=== PATIENT | female | born 2000 | race Caucasian/White ===

== ENCOUNTER → 2024-12-03 | Outpatient (CLI) | payer BC ==
--- NOTE | 2024-12-03 10:06 | MR ---
EXAMINATION TYPE: MR brain wo con DATE OF EXAM: 12/03/2024 8:58 AM COMPARISON: None. CLINICAL INDICATION: Female, 24 years old with history of G43.009 MIGRAINE W/O AURA, NOT INTRACTABLE, W/O ST; PHH, Migraines. TECHNIQUE: Multi planar, multi sequence imaging was performed through the brain including: T1, T2, In version recovery, Diffusion weighted imaging, and gradient echo imaging. No gadolinium was given. FINDINGS: The cota-white junctions, ventricular system, basal cisterns appear unremarkable. Midline structures show no abnormality. Diffusion-weighted imaging shows no evidence of restricted diffusion. The suscep tibility weighted images do not reveal any evidence for micro-hemorrhage. The bone marrow signal is within normal limits. Paranasal sinuses and mastoid air cells: No significant paranasal sinus disease. Visualized orbits: Orbital contents are intact. IMPRESSION: No evidence of intracranial mass or acute/subacute infarct. [facility] Vasquez, , 12/03/2024 10:04 AM
== END | disposition home or self-care (01) ==
LOC: RADMRIMAIN 08:26
PROVIDERS: ATTEND Family Medicine
DX: G43.009 Migraine without aura, not intractable, without status migrainosus (principal)
CPT/HCPCS: 70551